=== PATIENT | female | born 1970 | race Caucasian/White ===

== ENCOUNTER 2022-11-06 01:50 | Inpatient (IN) | payer OTHER, MEDICAID ==
[~2022-11-06] VITALS: Ht 154.9 cm; Wt 87.1 kg
[2022-11-06 01:50] VITALS: BP 136/84
--- NOTE | 2022-11-06 07:01 | NUR ---
Patient taken to bed 3 via WC.
--- NOTE | 2022-11-06 07:03 | NUR ---
Dr. Godoy examining patient.
[2022-11-06] MEDS ORDERED: NACL 0.9% 1,000 ML IV SCH (07:10)
[2022-11-06 08:23] LABS: BASOPHILS # (AUTO) 0.2 K/uL (0.00-0.22); EOSINOPHILS # (AUTO) 0.2 K/uL (0-0.4); EOSINOPHILS % (AUTO) 1.4 % (0.0-4.0); HEMATOCRIT 39.4 % (36-48); HEMOGLOBIN 12.7 g/dL (12.0-16.0); LYMPHOCYTES # (AUTO) 2.1 K/uL (2.5-16.5); LYMPHOCYTES % (AUTO) 12.6 % (20.5-51.1); MEAN CORPUSCULAR HEMOGLOBIN 27 pg (27-31); MEAN CORPUSCULAR HGB CONC 32 g/dL (33-37); MEAN CORPUSCULAR VOLUME 81.8 fL (80-94); MONOCYTES # (AUTO) 0.7 K/uL (0.8-1.0); MONOCYTES % (AUTO) 4.2 % (1.7-9.3); NEUTROPHILS # (AUTO) 13.7 K/uL (1.8-7.7); NEUTROPHILS % (AUTO) 80.8 % (42.2-75.2); PLATELET COUNT (AUTO) 286 K/uL (140-450); RED BLOOD CELL COUNT(AUTO) 4.81 MIL/uL (4.20-5.40); RED CELL DISTRIBUTION WIDTH 13.6 % (11.6-13.7); WHITE BLOOD COUNT (AUTO) 16.9 K/uL (4.8-10.8)
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
[2022-11-06 09:07] LABS: APPEARANCE,URINE CLEAR (CLEAR); BILIRUBIN,URINE NEGATIVE (NEGATIVE); BLOOD, URINE TRACE-I (NEGATIVE); COLOR,URINE YELLOW (YELLOW); LEUKOCYTE ESTERASE ,URINE NEGATIVE (NEGATIVE); NITRITE, URINE NEGATIVE (NEGATIVE); UGLUCOSE NEGATIVE (NEGATIVE)
[2022-11-06 09:17] LABS: ALBUMIN 4.4 g/dL (3.4-5.0); ANION GAP 14.2 (8-16); CARBON DIOXIDE 24.2 mmol/L (21-32); CREATININE 0.9 mg/dL (0.6-1.3); POTASSIUM 3.4 mmol/L (3.5-5.1); TOTAL BILIRUBIN 0.4 mg/dL (0.0-1.0)
[2022-11-06 09:48] LABS: RBC,URINE 0-5 /HPF (0-5); TRICHOMONAS,URINE None Seen /HPF (None Seen); WBC,URINE 0-5 /HPF (0-5); YEAST,URINE None Seen /HPF (None Seen)
--- NOTE | 2022-11-06 12:26 | NUR ---
1226-S/W [facility]LA TO VERIFY INSURANCE.
[2022-11-06] MEDS ORDERED: INSULIN LISPRO SLIDING SCALE 100 UNITS/ML VIAL SUBQ PRN (12:50)
[2022-11-06] MEDS ORDERED: MAG SULF 2000 MG/WATER PREMIX 50 ML IV PRN (12:50)
[2022-11-06] MEDS ORDERED: DEXTROSE 50% 50 ML SYR IVP PRN (12:50)
[2022-11-06] MEDS ORDERED: MORPHINE SULFATE 2 MG/ML SYR IVP PRN (12:50)
[2022-11-06] MEDS ORDERED: ONDANSETRON 4 MG/2 ML VIAL IVP PRN (12:50)
[2022-11-06] MEDS ORDERED: DOCUSATE SODIUM 100 MG GELCAP PO PRN (12:50)
[2022-11-06] MEDS ORDERED: ACETAMINOPHEN 325 MG TAB PO PRN (12:50)
[2022-11-06] MEDS ORDERED: POTASSIUM CHLORIDE 10 MEQ TABER PO PRN (12:50)
[2022-11-06] MEDS ORDERED: ZOLPIDEM 10 MG TAB PO PRN (12:50)
[2022-11-06] MEDS ORDERED: LORazepam 2 MG/ML VIAL IVP PRN (12:50)
[2022-11-06] MEDS: BLOOD GLUCOSE MONITORING 1 DEV DEV FS SCH (16:06)
[2022-11-06] MEDS ORDERED: OMEP40EC23 PO (18:54)
[2022-11-06] MEDS ORDERED: LOSA100T1 PO (18:54)
[2022-11-06] MEDS ORDERED: ESK300 PO (18:54)
[2022-11-06] MEDS ORDERED: METF-346 PO (18:54)
--- NOTE | 2022-11-06 19:12 | NUR ---
report given to SANTINO Maldonado
--- NOTE | 2022-11-06 19:32 | NUR ---
pt is resting and able to answer the questions. She is sleeping at this moment, denies pain.
--- NOTE | 2022-11-07 | NUR ---
pt went to rest room and pt is eating the dinner afterwards and she also asking for water.
[2022-11-07] MEDS: BLOOD GLUCOSE MONITORING 1 DEV DEV FS SCH ×2 (00:32→07:30)
--- NOTE | 2022-11-07 04:00 | NUR ---
pt is resting. no respiratory distress noted. bed lowered
--- NOTE | 2022-11-07 07:10 | NUR ---
PT RECEIVED, CARE ASSUMED. PT A/OX4. PT LAYING IN WITH C/O GEN BODY PAIN. INTRODUCED MYSELF. VITAL SIGNS WNL. NO ACUTE DISTRESS. WILL CONTINUE TO MONITOR
[2022-11-07 07:26] LABS: BASOPHILS # (AUTO) 0.1 K/uL (0.00-0.22); BASOPHILS % (AUTO) 0.6 % (0.0-2.0); EOSINOPHILS # (AUTO) 0.2 K/uL (0-0.4); EOSINOPHILS % (AUTO) 2.2 % (0.0-4.0); HEMATOCRIT 33.5 % (36-48); HEMOGLOBIN 11.2 g/dL (12.0-16.0); LYMPHOCYTES # (AUTO) 2.3 K/uL (2.5-16.5); LYMPHOCYTES % (AUTO) 21.5 % (20.5-51.1); MEAN CORPUSCULAR HEMOGLOBIN 28 pg (27-31); MEAN CORPUSCULAR HGB CONC 33 g/dL (33-37); MEAN CORPUSCULAR VOLUME 82.4 fL (80-94); MONOCYTES # (AUTO) 0.6 K/uL (0.8-1.0); MONOCYTES % (AUTO) 6.1 % (1.7-9.3); NEUTROPHILS # (AUTO) 7.3 K/uL (1.8-7.7); NEUTROPHILS % (AUTO) 69.6 % (42.2-75.2); PLATELET COUNT (AUTO) 245 K/uL (140-450); RED BLOOD CELL COUNT(AUTO) 4.07 MIL/uL (4.20-5.40); RED CELL DISTRIBUTION WIDTH 13.4 % (11.6-13.7); WHITE BLOOD COUNT (AUTO) 10.5 K/uL (4.8-10.8)
[2022-11-07 08:03] LABS: ANION GAP 12.9 (8-16); CARBON DIOXIDE 23.8 mmol/L (21-32); CREATININE 0.7 mg/dL (0.6-1.3); POTASSIUM 3.7 mmol/L (3.5-5.1)
--- NOTE | 2022-11-07 08:47 | NUR ---
PATIENT HAS BEEN SCREENED AND CATEGORIZED MODERATE NUTRITION RISK. PATIENT WILL BE SEEN WITHIN 3-5 DAYS OF ADMISSION. 11/06/22-11/11/[address]
[2022-11-07] MEDS ORDERED: ATI.5 PO (10:17)
[2022-11-07 13:38] VITALS: BP 134/73
[2022-11-07 13:47] VITALS: BP 134/73
[2022-11-07 14:10] VITALS: BP 137/85
--- NOTE | 2022-11-07 14:13 | NUR ---
Patient discharged with v/s stable. Written and verbal after care instructions given and explained. Patient verbalized understanding. Ambulatory with steady gait. All questions addressed prior to discharge. Advised to follow up with PMD.
[2022-11-07] MEDS ORDERED: metFORMIN 500 MG TAB PO SCH (17:00)
[2022-11-07] MEDS ORDERED: LITHIUM CARBONATE 300 MG TAB PO SCH (21:00)
[2022-11-08] MEDS ORDERED: LOSARTAN 50 MG TAB PO SCH (09:00)
== END 2022-11-07 14:13 | disposition home or self-care (01) | DRG 605 ==
LOC: MED 01:50 → MTU 12:49 → MIC 11-07 06:47 → MTU 11-07 08:08
PROVIDERS: ADMIT Family Medicine; ATTEND Family Medicine
DX: S30.1XXA Contusion of abdominal wall, initial encounter (principal); F31.9 Bipolar disorder, unspecified; I10 Essential (primary) hypertension; E11.9 Type 2 diabetes mellitus without complications; E87.6 Hypokalemia; Z20.822 Contact with and (suspected) exposure to COVID-19; Y93.89 Activity, other specified; Z79.899 Other long term (current) drug therapy; Y92.89 Other specified places as the place of occurrence of the external cause; Y99.8 Other external cause status; V89.2XXA Person injured in unspecified motor-vehicle accident, traffic, initial encounter; D72.829 Elevated white blood cell count, unspecified
CPT/HCPCS: 36415; 70450; 71045; 71260; 73590; 80048; 80053; 80178; 81001; 83690; 83735; 84703; 85025; 99285; J2060; Q9967